=== PATIENT | male | born 1990 | race Caucasian/White ===

== ENCOUNTER → 2017-09-01 | Outpatient (CLI) | payer SELFPAY ==
[2017-09-01 11:41] LABS: HEMATOCRIT 43.5 % (42.0-52.0); HEMOGLOBIN 14.6 g/dL (13.5-18.0); MEAN CELL VOLUME 84 fl (78-100); MEAN CORPUSCULAR HEMOGLOBIN 28 pg (27-31); MEAN CORPUSCULAR HGB CONC 34 g/dL (33-37); MEAN PLATELET VOLUME 9.7 fl (7.4-10.4); PLATELET COUNT 168 K/mm3 (130-400); RED CELL DISTRIBUTION WIDTH 12.7 % (11.5-14.5); WHITE BLOOD COUNT 8.5 K/mm3 (4.8-10.8)
[2017-09-01 12:41] LABS: BAND 2 % (0-10); LYMPHOCYTE 10 % (20-51); MONOCYTE 20 % (3-10); NEUTROPHILS 62 % (42-75)
== END ==
LOC: LAB 11:09
PROVIDERS: Nurse Practitioner Family
DX: R50.9 Fever, unspecified (principal); J03.90 Acute tonsillitis, unspecified; R59.0 Localized enlarged lymph nodes

== ENCOUNTER → 2021-03-18 | Outpatient (CLI) | payer SELFPAY | LOC: LAB 15:16 | DX: U07.1 COVID-19 (principal) ==